=== PATIENT | male | born 1940 | race Caucasian/White ===

== ENCOUNTER 2017-05-12 18:29 | Emergency (ER) | payer OTHER ==
[~2017-05-12] VITALS: Ht 167.6 cm; Wt 100.7 kg
[2017-05-12 18:37] VITALS: Ht 167.6 cm; Wt 100.7 kg
[2017-05-12 19:49] VITALS: BP 109/72
== END 2017-05-12 19:49 | disposition home or self-care (01) ==
LOC: ED 18:29
DX: S52.121A Displaced fracture of head of right radius, initial encounter for closed fracture (principal); S00.81XA Abrasion of other part of head, initial encounter; I10 Essential (primary) hypertension; W01.0XXA Fall on same level from slipping, tripping and stumbling without subsequent striking against object, initial encounter; Y93.89 Activity, other specified; Y92.89 Other specified places as the place of occurrence of the external cause; Y99.8 Other external cause status

== ENCOUNTER 2018-09-11 21:29 | Inpatient (IN) | payer OTHER ==
[~2018-09-11] VITALS: Ht 170.2 cm; Wt 108.1 kg
[2018-09-11 21:32] VITALS: Ht 170.2 cm; Wt 108.1 kg
--- NOTE | 2018-09-11 21:34 | NUR ---
DR TONG AT BEDSIDE FOR MSE.
--- NOTE | 2018-09-11 21:39 | NUR ---
PT FROM TRIAGE TO CT.
--- NOTE | 2018-09-11 21:52 | NUR ---
DR WONG, ERP, AT BEDSIDE.
--- NOTE | 2018-09-11 21:52 | NUR ---
PT TO ED ROOM#[address] AT [id number].
--- NOTE | 2018-09-11 21:54 | NUR ---
EKG IN PROGRESS AT BEDSIDE BY DARBY MCCORMICK
--- NOTE | 2018-09-11 21:58 | NUR ---
PT AWARE OF NEEDED URINE SPECIMEN.
--- NOTE | 2018-09-11 22:07 | NUR ---
X-RAY BEING DONE AT BEDSIDE.
[2018-09-11 22:10] LABS: BASOPHIL % 0.7 % (0-2); RED CELL DISTRIBUTION WIDTH 13.9 % (11.5-14.5)
[2018-09-11 22:11] LABS: PLATELET COUNT 125 x10^3mcL (130-400)
--- NOTE | 2018-09-11 22:14 | NUR ---
DAUGHTER UPDATED ON PT'S STATUS. OPPORTUNITY GIVEN TO ASK QUESTIONS. EMOTIONAL SUPPORT PROVIDED. DAUGHTER REMAINS AT BEDSIDE.
--- NOTE | 2018-09-11 22:17 | NUR ---
NEURO ASSESSMENT BEING DONE VIA TELE NEURO.
--- NOTE | 2018-09-11 22:23 | NUR ---
NEURO EXAM COMEPLETED BY DR HUERTAS VIA TELE NEURO AT THIS TIME. MD LAKE SHE WILL CONTACT ERP, DR TONG, TO CONFIRM PT STATUS OF STROKE AFFECTING L SIDE OF FACE.
--- NOTE | 2018-09-11 22:32 | NUR ---
PO MED PENDING DYSPHAGIA SCREEN TEST. ERP, DR TONG, AWARE.
--- NOTE | 2018-09-11 22:43 | NUR ---
PT ABLE TO SIT IN UPRIGHT POSITION IN BED WITHOUT ASSISTANCE, ABLE TO HOLD OWN SECRETION, BREATHING EASY AND UNLABORED. DYSPHAGIA SCREEN TEST COMPLETED AND PASSED PRIOR TO PO ASA MED ADMINISTRATION. PT CONVERSING W/ DAUGHTER AT BEDSIDE. ABLE TO FOLLOW SIMPLE COMMANDS. NO CHANGE IN STATUS AT THIS TIME. VSS. WILL CONTINUE TO MONITOR.
--- NOTE | 2018-09-11 22:47 | NUR ---
UNABLE TO RECONCILE MEDS AT THIS TIME. FAMILY DOESN'T KNOW NAME OF MEDS.
[2018-09-11 22:49] LABS: CALCIUM 8.2 mg/dL (8.5-10.1); CARBON DIOXIDE 24.8 mmol/L (21-32); CHLORIDE SERUM 106 mmol/L (98-107); CREATININE SERUM 1.1 mg/dL (0.7-1.3); GLUCOSE SERUM 96 mg/dL (74-106); SODIUM SERUM 138 mmol/L (136-145)
[2018-09-11 23:01] LABS: ALKALINE PHOSPHATASE 95 U/L (46-116); ALT/SGPT 24 U/L (16-63); AST/SGOT 32 U/L (15-37); BILIRUBIN TOTAL 0.82 mg/dL (0.20-1.00); FREE T4 1.09 ng/dL (0.76-1.46); TOTAL PROTEIN, SERUM 6.9 g/dL (6.4-8.2)
[2018-09-11 23:02] LABS: ALBUMIN 3.1 g/dL (3.4-5.0)
--- NOTE | 2018-09-11 23:18 | NUR ---
RN AT BEDSIDE TO CHECK ON PT. PT AWAKE AND ALERT. ABLE TO MAKE NEEDS KNOWN. NO CHANGE IN NEURO STATUS AT THIS TIME (NIH 3, +FACIAL DROOP, SLIGHT SLURRED SPEECH, SOME R ARM WEAKNESS BUT PT NOTED TO HAVE FULL ROM). C/O OF 5/10 R SIDE OF HEADACHE AT THIS TIME. NO OBVIOUS SIGNS OF DISTRESS. ERP, DR WALKER, MADE AWARE. VSS. WILL CONTINUE TO MONITOR.
--- NOTE | 2018-09-11 23:52 | NUR ---
NO CHANGE IN STATUS AT THIS TIME. RESTING COMFORTABLY IN BED. WILL CONTINUE TO MONITOR.
[2018-09-12] VITALS (7 sets, daily range): BP systolic 104–167; BP diastolic 58–77
[2018-09-12 01:25] LABS: microscopic required? NO
[2018-09-12] MEDS ORDERED: LIPI10 PO (01:26)
[2018-09-12] MEDS ORDERED: FLO4 PO (01:27)
[2018-09-12] MEDS ORDERED: GOOD SENSE ASPI81 M3 PO (01:27)
--- NOTE | 2018-09-12 01:41 | NUR ---
PT ADMITTED (TELE, ROOM# [id number]) - REPORT CALLED TO PAUL FITZPATRICK. OPPORTUNITY GIVEN TO ASK QUESTIONS. PT AAOX2 (SELF AND SITUATION), BREATHING EASY AND UNLABORED, VSS, DENIES PAIN AND NO CHANGE IN NEURO STATUS AT THIS TIME. PT BEING TRANSPORTED TO FLOOR BY RN AND EMT.
[2018-09-12 01:50] LABS: UA SPECIFIC GRAVITY <=1.005 (1.005-1.035); urine erythrocyte NEGATIVE (NEGATIVE)
[2018-09-12 02:03] LABS: CHOLESTEROL/HDL RATIO 3.4; MAGNESIUM 1.8 mg/dL (1.8-2.4); PHOSPHOROUS 2.8 mg/dL (2.5-4.9)
[2018-09-12 02:05] LABS: AMPHETAMINE QUAL UR NONE DETECTED (See below)
--- NOTE | 2018-09-12 02:48 | NUR ---
RECIEVED PT FROM ED. PT ALERT AND AWAKE. IN NO DISTRESS. BREATHING EVEN AND UNALBORED ON RA. COUGH NOTED WITH SCAN CLEAR SPUTUM. PT ABLE TO EXPELL WITH COUGH AND SPIT OUT. L FACIAL DROOPING NOTED. SLURRED SPEECH NOTED. PT ABLE TO COMMUNICATE NEEDS. A/O x4. DENIES ANY PAIN OR DISTRESS. PT DAUGHTER IS AT BEDSIDE. PERRLA. R HAND DRIFT NOTED AT 5 SEC WHEN PT EXTENDING ARMS OUTWARD. WEAKER GRASP NOTED ON R HAND. PT DENIES ANY FALL OR TRAUMA. SKIN INTACT. BED IS AT LOWEST SETTING. CALL LIGHT WITHIN REACH. WILL CONTIUE TO [facility].
--- NOTE | 2018-09-12 06:20 | NUR ---
PT IS RESTING IN BED WITH BOTH EYES CLOSED. BREATHING EVEN AND UNLABORED. NO SIGN OF DISTRESS NOTED. NO ACUTE EVENT OCCURED DURING SHIFT. BED IS AT LOWEST SETTING. CALL LIGHT WITHIN REACH. WILL ENDORSE TO AM NURSE.
--- NOTE | 2018-09-12 06:38 | NUR ---
MD HYLTON WAS HANDED THE TELE [facility] CONSULTS RECOMMENDATIONS.
--- NOTE | 2018-09-12 07:06 | NUR ---
RECEIVED PT FROM SHIFT NURSE A/OX4 LYING IN BED. NO ACUTE DISTRESS NOTED. IV INTACT AND PATENT. BED IN LOW POSITION. CALL LIGHT WITHIN REACH. WILL CONTINUE TO MONITOR.
--- NOTE | 2018-09-12 07:40 | NUR ---
MADE DR. OCHOA AWARE OF PLT 17
--- NOTE | 2018-09-12 09:27 | NUR ---
PT ASLEEP BUT AROUSABLE. NO ACUTE DISTRESS NOTED. CALL LIGHT WITHIN REACH. WILL CONTINUE TO MONITOR.
--- NOTE | 2018-09-12 11:45 | NUR ---
HERE AND MADE AWARE THAT MRI CAN'T BE DONE TODAY NOT TILL TOMORROW.
--- NOTE | 2018-09-12 12:54 | NUR ---
PT RESTING IN BED WATCHING TV. NO ACUTE DISTRESS NOTED. CALL LIGHT WITHIN REACH. WILL CONTINUE TO MONITOR.
--- NOTE | 2018-09-12 15:21 | NUR ---
PT RESTING IN BED WITH EYES CLOSED. NO ACUTE DISTRESS NOTD. CALL LIGHT WITHIN REACH. WILL CONTINUE TO MONITOR.
--- NOTE | 2018-09-12 18:25 | NUR ---
PT RESTING IN BED. NO ACUTE DISTRESS NOTED. IV INTACT AND PATENT. FALL PRECAUTIONS IN PLACE. BED IN LOW POSITION. CALL LIGHT WITHIN REACH. WILL BE ENDORSED.
--- NOTE | 2018-09-12 19:30 | NUR ---
PT IS A/O X4. SLURRED SPEECH. SLIGHT L FACIAL DROOP. SLIGHT R ARM DRIFT AT 5 SEC WHEN EXTENDED. PT ABLE TO COMMUNICATE NEEDS AND FOLLOW COMMANDS. ON TELE #3, NSR. PULSES ARE PRESENT. NO EDEMA NOTED. LUNGS CLEAR IN ALL FEILDS. EQUAL CHEST RISE AND FALL. NO SIGN OF RESP DISTRESS. PT HAS A MILD COUGH WITH SCANT CLEAR SPUTUM. BOWEL SOUNDS PRESENT X4. DENIES ANY ABD PAIN OR DISTRESS. CANE AT BEDSIDE. SKIN INTACT. DENIES ANY PAIN AT THIS TIME. IV ON LFA, INTACT AND PATENT. NO SIGN OF IRRITATION OR INFILTRATION. SALINE LOCKED ON THE L HAND. SITE INTACT AND PATENT. BED IS AT LOWEST SETTING. CALL LIGHT WIIN REACH. WILL CONTINUE TO [facility].
--- NOTE | 2018-09-13 01:32 | NUR ---
PT IS RESTING IN BED WITH BOTH EYES CLOSED. BREATHING EVEN AND UNALBORED. NO SIGN OF DISTRESS NOTED. BED IS AT LOWEST SETTING. CALL LIGHT WITHIN REACH. WILL CONTINUE TO [facility].
[2018-09-13 06:02] VITALS: BP 130/62
--- NOTE | 2018-09-13 06:18 | NUR ---
PT IS RESTING IN BED. NO ACUTE EVENT OCCURED DURING SHIFT. NO NUEROLOGICAL CHANGES OCCURED DURING SHIFT. IV INTACT AND PATENT. BED IS AT LOWEST SETTING. CALL LIGHT WITHIN REACH. WILL ENDORSE TO AM NURSE.
[2018-09-13 06:51] LABS: BASOPHIL % 0.4 % (0-2); RED CELL DISTRIBUTION WIDTH 13.6 % (11.5-14.5)
[2018-09-13 07:03] LABS: CALCIUM 8.5 mg/dL (8.5-10.1); CARBON DIOXIDE 21.6 mmol/L (21-32); CHLORIDE SERUM 107 mmol/L (98-107); CREATININE SERUM 1.1 mg/dL (0.7-1.3); GLUCOSE SERUM 90 mg/dL (74-106); POTASSIUM SERUM 3.8 mmol/L (3.5-5.1); SODIUM SERUM 139 mmol/L (136-145)
[2018-09-13 07:08] LABS: PLATELET COUNT 107 x10^3mcL (130-400)
--- NOTE | 2018-09-13 07:43 | NUR ---
RECEIVED AWAKE AND ALERT. NO RESP. DISTRESS. RT SIDED WEAKNESS AND LT FACIAL DROOP NOTED. SAFETY MEASURES MAINTAINED. IVF INFUSING WELL AND SITE CLEAR. NO C/O PAIN OR DISCOMFORT. CALL LIGHT WITHIN REACH. WILL CONTINUE WITH PLAN OF CARE.
[2018-09-13 09:02] VITALS: BP 151/64
--- NOTE | 2018-09-13 10:57 | NUR ---
AM PO MEDS NOT GIVEN. PT UNABLE TO SWALLOW. PENDING SWALLOW EVAL.
[2018-09-13 11:49] VITALS: BP 153/70
--- NOTE | 2018-09-13 14:19 | NUR ---
RESTING IN BED, NO NEURO CHANGES FROM AM ASSESMENT. NO C/O PAIN OR DISCOMFORT.
--- NOTE | 2018-09-13 15:46 | NUR ---
PT WAS SEEN FOR DYSPHAGIA. PT WAS ABLE TO SAFELY SWALLOW PUREE DIET WITH THIN LIQUID WITHOUT S/S OF ASPIRATION. PT HAD DIFFICULTY WITH MASTICATION SKILLS FOR MS DIET. RECMMENDATION PUREE DIET WITH THIN LIQUID SMALL BITES AND SIPS ONLY.
[2018-09-13 16:16] VITALS: BP 137/70
--- NOTE | 2018-09-13 16:30 | NUR ---
PT IN BED, FAMILY AT BEDSIDE. LT FACIAL DROOP HAS DECREASED, PT APPEARS MOVE ALERT AND RT GARSPS IS MORE STRONGER. NO C/O PAIN OR DISCOMFORT AT THIS TIME.IVF INFUSING WELL
--- NOTE | 2018-09-13 19:07 | NUR ---
REMAINS IN NO DISTRESS. AWAKE AND ALERT. NO CHANGES IN VS. NO C/O PAIN OR DISCOMFORT. FAMILY AT BEDSIDE. CALL LIGHT WITHIN REACH. WILL BE ENDORSED TO INCOMING SHIFT.
--- NOTE | 2018-09-13 19:09 | NUR ---
LEFT FOR MRI
--- NOTE | 2018-09-13 19:35 | NUR ---
RECIEVED PT IN NO ACUTE DISTRESS. AOX4. L SIDE FACIAL DROOP. R SIDED WEAKNESS. SPEECH SLURRED. TELE #3, SR. BREATHING E/U. DENIES PAIN. IV TO LFA AND LH, PATENT, NO REDNESS/SWELLING. BED IN LOWEST POSITION, CALL LIGHT IN REACH. INSTRUCTED TO CALL FOR ASSISTANCE.
[2018-09-13 21:01] VITALS: BP 110/68
--- NOTE | 2018-09-14 00:35 | NUR ---
RESTING IN BED WITH EYES CLOSED. BREATHING E/U. NO ACUTE DISTRESS NOTED. WILL CONTINUE TO MONITOR.
[2018-09-14 05:43] VITALS: BP 146/61
--- NOTE | 2018-09-14 06:47 | NUR ---
NO ACUTE CHANGES. NO ACUTE DISTRESS NOTED. WILL ENDORSE TO ONCOMING RN.
--- NOTE | 2018-09-14 07:30 | NUR ---
PATIENT IN BED APPEARS TO BE RESTING AROUSED EASILY TO NAME. ALERT AND ORIENTED, SPEECH SLIGHTLY SLURRED. SLIGHT LEFT SIDE FACIAL DROOP NOTED. MILD RT SIDE WEAKNESS NOTED. TELE 3 NSR. NO ACUTE DISTRESS NOTED. IVF INFUSING WELL, SITES x 2 PATENT.
[2018-09-14 08:18] VITALS: BP 120/70
[2018-09-14 11:51] VITALS: BP 133/62
--- NOTE | 2018-09-14 13:07 | NUR ---
PATIENT'S PLAN OF CARE WAS DISCUSSED AND REVIEWED WITH TUBE WRAPPER:TI AMAYA. I HAVE REVIEWED THE DATA COLLECTION BY TUBE WRAPPER (NAME):TI AMAYA. ENTERED ON (DATE/TIME):09/14/18. I CONCUR WITH THE DATA AND ANY EXCEPTIONS OR COMMENTS ARE LISTED BELOW:
--- NOTE | 2018-09-14 13:11 | NUR ---
OT WAS INTO SEE PATIENT TODAY, PT TOLERATED WELL.
[2018-09-14] MEDS ORDERED: ATORVASTATIN CA40 M1 PO (14:44)
--- NOTE | 2018-09-14 16:30 | NUR ---
PHYSICAL THERAPY DAILY NOTES CO-SIGN All documentation done by the Professional Bass Fisher for 09/14/18 has been reviewed. I agree with the documentation. Reviewed/Co-Signed by: Darlene Gonzalez PT Documentation Done by:KAROL ROBERTSON PTA
[2018-09-14 16:35] VITALS: BP 131/69
--- NOTE | 2018-09-14 17:45 | NUR ---
PATIENT SITTING UP IN BED EATING DINNER TRAY. IV SITE LEFT F/A INFILTRATED. IV REMOVED AND IS NOW INFUSING WELL TO LEFT HAND. PATIENT DENIES ANY H/A OR DIZZINESS,DENIES ANY PAIN. TELE 3 NSR. LEFT FACIAL DROOP AND SLURRED SPEECH REMAINS NOTED.
--- NOTE | 2018-09-14 19:57 | NUR ---
PT CURRENTLY RESTING IN BED, NO ACUTE DISTRESS. A/O X4. SLURRED SPEECH AND LEFT FACIAL DROOP NOTED. C/O MILD HEADACHE 2/10 PAIN. TELE #3 SHOWING SINUS RHYTHM, DENIES CHEST PAIN. PULSES PALPABLE IN ALL EXTREMITIES, NO EDEMA NOTED. LUNG SOUNDS CTA BILATERALLY, DENIES SOB. BOWEL SOUNDS ACTIVE, LAST BM 09/11/18. VOIDING WELL. RIGHT SIDED WEAKNESS, MILD GENERALIZED WEAKNESS. SKIN INTACT. IV PATENT AND INTACT. BED IN LOWEST POSITION, SIDE RAILS UP X2, CALL LIGHT WITHIN REACH. WILL CONTINUE TO MONITOR.
[2018-09-14 20:04] VITALS: BP 143/63
--- NOTE | 2018-09-15 00:37 | NUR ---
PT CURRENTLY RESTING IN BED, NO ACUTE DISTRESS. FAMILY AT BEDSIDE. WILL CONTINUE TO MONITOR.
[2018-09-15 05:10] VITALS: BP 133/59
--- NOTE | 2018-09-15 06:19 | NUR ---
PT SLEPT PERIODICALLY THROUGHOUT NIGHT, NO ACUTE DISTRESS. ALL NEEDS MET AND ATTENDED TO. NO SIGNIFICANT CHANGES. IV PATENT AND INTACT. BED IN LOWEST POSITION, SIDE RAILS UP X2, CALL LIGHT WITHIN REACH. WILL ENDORSE CARE TO ONCOMING NURSE.
--- NOTE | 2018-09-15 07:35 | NUR ---
AAO TIMES 4. LEFT FACIAL DROOP, RIGHT SIDED WEAKNESS RUE AND RLE. LUNGS CTA. N SOB. O2 SAT ON RA 94%. BS'S ACTIVE TIMES 4. ABDOMEN SOFT AND DISTENDED, BS'S ACTIVE TIMES 4. +1 EDEMA BLE. IV SITE LEFT HAND CDI.
[2018-09-15 08:06] VITALS: BP 141/62
[2018-09-15 12:29] VITALS: BP 126/61
--- NOTE | 2018-09-15 15:49 | NUR ---
PHYSICAL THERAPY DAILY NOTES CO-SIGN All documentation done by the Bench Chemist for 09/15/18 has been reviewed. I agree with the documentation. Reviewed/Co-Signed by: Darlene Gonzalez PT Documentation Done by:KAROL ROBERTSON PTA
[2018-09-15 16:25] VITALS: BP 129/53
[2018-09-15 17:16] VITALS: BP 129/53
--- NOTE | 2018-09-15 17:33 | NUR ---
I GAVE REPORT FOR THIS PATIENT'S TRANSFER TO [facility] AT 9:00 PM VIA [facility] TO [place]. THE PHONE NUMBER FOR [facility] IS [phone]. [facility] REQUESTED THE NIGHT NURSE HERE GIVE THE PO MEDICATIONS FOR NIGHT TIME, [facility].
--- NOTE | 2018-09-15 18:14 | NUR ---
AAO TIMES 4. SLURRED SPEECH, RIGHT SIDED WEAKNESS AND LEFT SIDED FACIAL DROOP. FAMILY PRESENT, SUPPORTIVE. THE FAMILY AND HE KNOWS HE WILL BE GOING TO [facility] AT 2[address] [employer] [facility]. THE SIGNED HIS DISCHARGE PAPERS HE FELT TOO WEAK TO USE HIS WEAK RIGHT HAND TO SIGN. NO SOB. NO C/O PAIN. FAMILY IS TAKING HIS BELONGINGS HOME, EXCEPT HIS CANE THEY ARE LEAVING WITH HIM. TELE # 3 SR WITH BBB.
--- NOTE | 2018-09-15 19:30 | NUR ---
RECIEVED PATIENT AT START OF SHIFT RESTING IN BED. AROUSABLE WITH VERABL STIMULUS. PATIENT IS A/O X 4. SPEECH IS SLURRED BUT UNDERSTANDABLE. ABLE TO FOLLOW COMMANDS. RIGHT SIDED BODY STRENGTH IS +3, LEFT SIDE +5. ON TELE 3, NSR. NO SOB ON RA, LUNGS CTAB. BED SIDE TABLE AND CALL LIGHT WITHIN REACH. IV TO L HAND IS INFUSING WITHOUT ERYTHEMA OR INFILTRATION.
[2018-09-15 20:48] VITALS: BP 150/70
--- NOTE | 2018-09-15 21:50 | NUR ---
[facility] IS HERE TO TRANSPORT PATIENT. IV TO WAS REMOVED WITH CATHETER INTACT. ID BANDS REMOVED FROM PATIENT. TELE MONITOR REMOVED FROM PATIENT. PINK GOWN PLACED ON PATIENT. PATIENT LEFT THE FLOOR WITH HIS BELONGINGS INCLUDING HIS PLANT, BLUE STRESS BALL, AND CANE. PATIENT LEFT THE FLOOR AT THIS TIME WITH [facility] TRANSP[facility].
== END 2018-09-15 21:50 | DRG 65 ==
LOC: ED 21:29 → DU 09-12 01:09
PROVIDERS: Emergency Medicine; Internal Medicine; ADMIT Internal Medicine Pulmonary Disease
DX: I63.81 Other cerebral infarction due to occlusion or stenosis of small artery (principal); I69.951 Hemiplegia and hemiparesis following unspecified cerebrovascular disease affecting right dominant side; R29.810 Facial weakness; R47.1 Dysarthria and anarthria; I10 Essential (primary) hypertension; N40.0 Benign prostatic hyperplasia without lower urinary tract symptoms; E78.5 Hyperlipidemia, unspecified; E66.9 Obesity, unspecified; Z79.82 Long term (current) use of aspirin; Z68.36 Body mass index [BMI] 36.0-36.9, adult
CPT/HCPCS: 84439; 92526-GN; 92610-GN; 97116-GP; 97530-GP; G0378; G0480; J1650; Q0092